=== PATIENT | male | born 1985 | race Caucasian/White ===

== ENCOUNTER → 2016-12-20 19:00 | Emergency (ER) | payer OTHER ==
[~2016-12-20 19:00] MED LIST: BACTRIM DS TABL1 TA1 PO; ELIMITE60 GM TOP; KEFLEX500 MG PO; NORCO 5/325 TAB1 TAB PO; PEN-VEE K PO; PREDNISONE PO
== END | disposition left against medical advice (07) ==
LOC: CED 19:00
DX: Z53.21 Procedure and treatment not carried out due to patient leaving prior to being seen by health care provider (principal)